=== PATIENT | male | born 1985 | race African-American/Black ===

== ENCOUNTER → 2019-01-13 | Outpatient (CLI) | payer OTHER ==
--- NOTE | 2019-01-13 14:52 | RADIOLOGY REPORT (SQ) ---
EXAM DESCRIPTION: DUPLEX ART/DUNIA FLOW COMPLETE COMPLETED DATE/TIME: 01/13/2019 10:06 am REASON FOR STUDY: HTA/LISA I70.1 ATHEROSCLEROSIS OF RENAL ARTERY COMPARISON: CT abdomen and pelvis 11/22/2009 TECHNIQUE: Realtime and static grayscale images acquired. Selected color Doppler, velocities and spe ctral images recorded. LIMITATIONS: Renal artery origins not well seen due to midline bowel gas FINDINGS: RIGHT KIDNEY: RENAL ARTERY VELOCITIES: At the hilum, 86 cm/sec. Segmental artery velocity 51 cm/sec. RENAL VEIN: Color doppler flow present, patent. VELOCITY RATIO: 1.0. Normal waveforms. KIDNEY: Normal size. No significant pathology. LEFT KIDNEY: RENAL ARTERY VELOCITIES: At the hilum, 98 cm/sec. Segmental artery velocity 54 cm/sec. RENAL VEIN: Color doppler flow present, patent. VELOCITY RATIO: 1.2. Normal waveforms. KIDNEY: Normal size. No significant pathology. BLADDER: Normal. OTHER: No other significant finding. IMPRESSION: NO DOPPLER EVIDENCE OF HEMODYNAMICALLY SIGNIFICANT RENAL ARTERY STENOSIS. COMMENT: NORMAL RENAL ARTERY/AORTA VELOCITY RATIO IS LESS THAN OR EQUAL TO 3.5. TECHNICAL DOCUMENTATION: JOB ID: [id number] [employer]- All Rights Reserved Reading location - IP/workstation name: [email or web address]
== END ==
LOC: RAD 08:50
PROVIDERS: ATTEND General Practice
DX: I70.1 Atherosclerosis of renal artery (principal)
CPT/HCPCS: 93975